=== PATIENT | male | born 1935 | race Caucasian/White ===

== ENCOUNTER → 2016-07-30 | Day surgery (SDC) | payer MEDICARE ==
[~2016-07-30] VITALS: Ht 188 cm; Wt 73.5 kg
[~2016-07-30] MED LIST: CALC1TAB87 PO; HYALURONIDASE/LIDOCAINE/EPINEPHRINE/BUPIVACAINE 4.5 ML SYR LEFT EYE ONE; HYALURONIDASE/LIDOCAINE/EPINEPHRINE/BUPIVACAINE 6 ML SYR LEFT EYE ONE; HYALURONIDASE/LIDOCAINE/EPINEPHRINE/BUPIVACAINE 6 ML SYR ONE; LIDOCAINE HCL 1% 30 ML VIAL ONE; MIDAZOLAM HCL 2 MG/2 ML VIAL ONE; OMEP20TA PO; PROPARACAINE HCL 0.5% OPHT SOLN 15 ML BTL LEFT EYE ONE; PROPOFOL 200 MG/20 ML AMP ONE; PROZ20CA11 PO; SODIUM CHLORID 0.9% 500 ML INJ 500 ML ONE; TOBRAMYCIN/DEXAMETHASONE OPTH OINT 3.5 GM TUBE ONE; UMEC1INH INH; VENTAER INH; VITA100018 PO
[2016-07-30 08:05] VITALS: BP 137/75; PULSE 59; RESP 16; TEMP 97.6; O2SAT 100
[2016-07-30] MEDS: CYCLOPENTOLATE HCL 1% OPHT SOLN 2 ML BTL LEFT EYE SCH ×4 (08:12→08:27)
[2016-07-30] MEDS: PHENYLEPHRINE HCL 10% OPTH SOLN 5 ML BTL LEFT EYE SCH ×4 (08:12→08:27)
[2016-07-30] MEDS: FLURBIPROFEN 0.03% OPHT SOLN 2.5 ML BTL LEFT EYE SCH ×4 (08:12→08:27)
[2016-07-30] MEDS: TROPICAMIDE 1% OPHT SOLN 15 ML BTL LEFT EYE SCH ×4 (08:12→08:27)
[2016-07-30 08:15] VITALS: PULSE 59
[2016-07-30 09:07] VITALS: PULSE 94
[2016-07-30 10:05] VITALS: TEMP 98
[2016-07-30 10:30] VITALS: BP 120/60; PULSE 60; RESP 14; O2SAT 96
--- NOTE | 2016-08-04 23:18 | MP ---
cc: ESA NATION M.D. [facility] #: [id number] DATE: 07/30/2016 PREOPERATIVE DIAGNOSIS: Visually significant cataract left eye. POSTOPERATIVE DIAGNOSIS: Visually significant cataract left eye. OPERATION: Phacoemulsification with posterior chamber lens implantation, left eye. SURGEON: Esa Nation MD ANESTHESIA: Retrobulbar with MAC. COMPLICATIONS: None. PROCEDURE: After informed consent was obtained, the patient was brought into the operative suite and placed on appropriate monitors by the Anesthesia Service. The patient had received a prior retrobulbar injection of local anesthetic by the Anesthesia Service in the holding area. The patient's operative eye was then prepped and draped in the usual sterile fashion. A wire lid speculum was placed. A paracentesis incision was made in the peripheral cornea with a 1 mm liliane keratome. The anterior chamber was filled with viscoelastic. The anterior chamber was then entered through a stepped, clear corneal incision using a sharp 3 mm liliane keratome. A circular tear capsulorrhexis was then made with a bent needle cystitome. Following hydrodissection of the lens nucleus with balanced saline, phacoemulsification of the nucleus was performed using a modified chopping technique. The remaining cortex was removed with irrigation/aspiration. The prior two procedures were both performed using the handpieces of the [employer] phaco unit. The capsular bag was then filled with viscoelastic. The intraocular lens was then injected into the capsular bag and positioned. The type of intraocular lens and its power can be found elsewhere in this chart. The remaining viscoelastic was then removed from the anterior chamber with the IA handpiece. The anterior chamber was reformed with balanced saline. The wound was then closed securely with stromal hydration. It was found to be watertight to an intraocular pressure of at least 30 mmHg by palpation. A small amount of balanced salt solution was then removed through the paracentesis site and the intraocular pressure at the end of the case was approximately 20 by palpation. All drapes were then removed. TobraDex ointment was then placed in the eye, which was closed beneath a semi-pressure patch dressing. The patient tolerated this procedure well and left the operating room awake and alert. The patient is to follow-up in my office in the morning. MD DEANGELO Tsai/SSB /10:04 AM /11:16 PM
== END | disposition home or self-care (01) ==
LOC: CSDC 07:09
PROVIDERS: ATTEND Optometrist Occupational Vision
DX: H25.812 Combined forms of age-related cataract, left eye (principal); Z95.0 Presence of cardiac pacemaker
CPT/HCPCS: 00142; 66984; J2250; J7040; V2632

== ENCOUNTER → 2016-09-23 | Day surgery (SDC) | payer MEDICARE ==
[~2016-09-23] MED LIST changes: -HYALURONIDASE/LIDOCAINE/EPINEPHRINE/BUPIVACAINE 4.5 ML SYR LEFT EYE ONE; -HYALURONIDASE/LIDOCAINE/EPINEPHRINE/BUPIVACAINE 6 ML SYR LEFT EYE ONE; -HYALURONIDASE/LIDOCAINE/EPINEPHRINE/BUPIVACAINE 6 ML SYR ONE; +LACTATED RINGER'S 1000 ML INJ 1,000 ML ONE; -LIDOCAINE HCL 1% 30 ML VIAL ONE; -MIDAZOLAM HCL 2 MG/2 ML VIAL ONE; -PROPARACAINE HCL 0.5% OPHT SOLN 15 ML BTL LEFT EYE ONE; +PROPOFOL 100 MG/10 ML INJ IV ONE; -PROPOFOL 200 MG/20 ML AMP ONE; -SODIUM CHLORID 0.9% 500 ML INJ 500 ML ONE; -TOBRAMYCIN/DEXAMETHASONE OPTH OINT 3.5 GM TUBE ONE; -UMEC1INH INH
--- NOTE | 2016-09-23 12:26 | GIPROC ---
[facility] [address], [address] EGD PROCEDURE REPORT EXAM DATE: 09/23/2016 PATIENT NAME: Ap Arevalo MR #: [id number] BIRTHDATE: 1935 ATTENDING: David Heath MD ORDER #: [id number] SYSTEMS SOFTWARE DESIGNER: Remedios Garcia STATUS: outpatient INDICATIONS: The patient is a 80 yr old male here for an EGD due to dysphagia and cirrhosis PROCEDURE PERFORMED: EGD w/ band ligation of varices MEDICATIONS: None and Per Anesthesia. TOPICAL ANESTHETIC: CONSENT: The patient understands the risks and benefits of the procedure and understands that these risks include, but are not limited to: sedation, allergic reaction, infection, perforation and/or bleeding. Alternative means of evaluation and treatment include, among others: physical exam, x-rays, and/or surgical intervention. The patient elects to proceed with this endoscopic procedure. medical equipment was checked for proper function. Hand hygiene and appropriate measures for infection prevention was taken. After the risks, benefits and alternatives of the procedure were thoroughly explained, Informed consent was verified, confirmed and timeout was successfully executed by the treatment team. The patient was anesthetized with topical anesthesia and the EC-3490Li ([id number]) and EC-2990i ([id number]) endoscope was introduced through the mouth and advanced to the second portion of the duodenum. Retroflexed views revealed no abnormalities The gastroscope was then slowly withdrawn and removed. 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 The varices were not bleeding. There was evidence of prior scarring. A moderately severe Schatzki ring was found at the gastroesophageal junction. The endoscopy was otherwise normal. STOMACH: A medium sized hiatal hernia was noted. Moderate portal hypertensive gastropathy was found. ADVERSE EVENTS: There were no complications. IMPRESSIONS: 1. Schatzki ring was found at the gastroesophageal junction 2. Normal endoscopy otherwise 3. Medium sized hiatal hernia 4. Portal hypertensive gastropathy was found 5. Retroflexed views revealed no abnormalities RECOMMENDATIONS: 1. Follow-up: GI clinic 2 week(s) 2. Recommend chew food well EGD in 2 months to follow up on varices and possibly do dilation for the Schatski ring 3. Anti-reflux regimen 4. Continue PPI PATIENT CONDITION: stable DISPOSITION: Home REPEAT EXAM: David Heath MD eSigned: David Heath MD 09/23/2016 12:25 PM cc: Raquel Daniel [facility] [place] PATIENT NAME: Ap Arevalo MR#: [id number]
== END | disposition home or self-care (01) ==
LOC: ESDC 09:23
PROVIDERS: ATTEND Internal Medicine Gastroenterology
DX: R13.10 Dysphagia, unspecified (principal); K74.60 Unspecified cirrhosis of liver; I85.00 Esophageal varices without bleeding; K22.2 Esophageal obstruction; K44.9 Diaphragmatic hernia without obstruction or gangrene; K76.6 Portal hypertension; K31.89 Other diseases of stomach and duodenum
CPT/HCPCS: 00740; 43244; J3010; J7120

== ENCOUNTER 2016-10-05 09:14 | Emergency (ER) | payer MEDICARE ==
[~2016-10-05] VITALS: Ht 188 cm; Wt 76.0 kg
[~2016-10-05 09:14] MED LIST changes: -LACTATED RINGER'S 1000 ML INJ 1,000 ML ONE; -PROPOFOL 100 MG/10 ML INJ IV ONE; -PROZ20CA11 PO
[2016-10-05 09:15] VITALS: BP 134/70; PULSE 82; RESP 20; TEMP 97; O2SAT 95
--- NOTE | 2016-10-05 10:26 | PD ---
HPI Chief Complaint: ENT Complaint Time Seen by Provider: 10:00 Travel History International Travel<30 days: No Contact w/Intl Traveler<30days: No Traveled to known affect area: No History of Present Illness HPI This patient complains of difficulty swallowing solid foods. He is able to drink down liquids without any difficulty. He doesn't feel like anything stuck now. But when he eats solid he has to make effort to force it down into the stomach. He says this all started when he had endoscopy September 23, which was 12 days ago. He says he woke up from the endoscopy with the problem and was told it would go away but hasn't so he is now in the emergency room for that. Comes of moderate severity. No alleviating factors. Duration 12 days. PFSH Past Medical History Asthma: No Autoimmune Disease: No Blood Disorders: Yes (THROMBOCYTOPENIA) Anxiety: Yes Depression: No Heart Rhythm Problems: No Cancer: Yes (skin ca on hand DC) Cardiovascular Problems: Yes (pacemaker) High Cholesterol: Yes Chest Pain: Yes Congestive Heart Failure: No COPD: Yes Coronary Artery Disease: No Diabetes: No Diminished Hearing: No Endocrine: No Gastrointestinal Disorders: Yes (GALLSTONES) GERD: Yes Genitourinary: No Hepatitis: No Hiatal Hernia: Yes Hypertension: No Immune Disorder: No Kidney Stones: Yes Medical other: Yes (pt states he does not know why blood count low, ) Musculoskeletal: No Neurologic: No Psychiatric: No Reproductive: No Respiratory: Yes (emphysema) Immunizations Current: Yes Sleep Apnea: No Thyroid Disease: No Tetanus Vaccination: < 5 Years Past Surgical History Abdominal Surgery: Yes (RT INGUINAL HERNIA) AICD: No Cardiac Surgery: Yes (pacemaker ) Joint Replacement: No Pacemaker: Yes (inserted with this visit) Other Surgery: Yes Social History Alcohol Use: No Tobacco Use: No (HX 1 PPD - QUIT 60 YEARS AGO) Substance Use: No Allergies-Medications (Allergen,Severity, Reaction): Coded Allergies: No Known Allergies (Unverified , 10/05/16) Reported Meds & Prescriptions Reported Meds & Active Scripts Active Reported Calcium 600 with Vitamin D (Calcium Carbonate-Cholecalciferol) 600-400 mg-Unit Tab 1 Tab PO DAILY Ventolin Hfa 18 GM Inh (Albuterol Sulfate) 90 Mcg/Act Aer 2 Puff INH Q4-6H PRN Vitamin D3 (Cholecalciferol) 1,000 Unit Tab 1,000 Units PO DAILY Omeprazole 20 Mg Tab 20 Mg PO DAILY Review of Systems General / Constitutional: No: Fever Eyes: No: Visual changes HENT: No: Headaches Cardiovascular: No: Chest Pain or Discomfort Respiratory: No: Shortness of Breath Gastrointestinal: Positive: Dysphagia, No: Abdominal Pain Genitourinary: No: Dysuria Musculoskeletal: No: Pain Skin: No Rash Neurologic: No: Weakness Psychiatric: No: Depression Endocrine: No: Polydipsia Hematologic/Lymphatic: No: Easy Bruising Physical Exam Narrative GENERAL: Well-nourished, well-developed patient in no apparent distress. SKIN: Focused skin assessment reveals no rash and nodules. Skin is Warm and dry. Has scabbed lesion on the forehead HEAD: Atraumatic. Normocephalic. EYES: Pupils equal and round. No scleral icterus. No injection or drainage. ENT: No nasal bleeding or discharge. Mucous membranes pink and moist. NECK: Trachea midline. No JVD. CARDIOVASCULAR: Regular rate and rhythm. No murmur appreciated. RESPIRATORY: No accessory muscle use. Clear to auscultation. Breath sounds equal bilaterally. GASTROINTESTINAL: Abdomen soft, non-tender, nondistended. Hepatic and splenic margins not palpable. MUSCULOSKELETAL: No obvious deformities. No clubbing. No cyanosis. No edema. NEUROLOGICAL: Awake and alert. No obvious cranial nerve deficits. Motor grossly within normal limits. Normal speech. PSYCHIATRIC: Appropriate mood and affect; insight and judgment normal. Data Data Last Documented VS Vital Signs Date Time Temp Pulse Resp B/P Pulse Ox O2 Delivery O2 Flow Rate FiO2 10/05/16 13:00 97.8 74 16 130/72 99 Room Air Orders Iv Access Insert/Monitor (10/05/16 10:26) Complete Blood Count With Diff (10/05/16 10:26) Basic Metabolic Panel (Bmp) (10/05/16 10:26) Barium Swallow (10/05/16 ) Labs Laboratory Tests Test 10/05/16 10:59 White Blood Count 3.8 TH/MM3 Red Blood Count 4.40 MIL/MM3 Hemoglobin 13.9 GM/DL Hematocrit 38.7 % Mean Corpuscular Volume 88.0 FL Mean Corpuscular Hemoglobin 31.7 PG Mean Corpuscular Hemoglobin 36.0 % Concent Red Cell Distribution Width 15.4 % Platelet Count 48 TH/MM3 Mean Platelet Volume 7.1 FL Neutrophils (%) (Auto) 73.2 % Lymphocytes (%) (Auto) 14.4 % Monocytes (%) (Auto) 10.7 % Eosinophils (%) (Auto) 1.3 % Basophils (%) (Auto) 0.4 % Neutrophils # (Auto) 2.8 TH/MM3 Lymphocytes # (Auto) 0.5 TH/MM3 Monocytes # (Auto) 0.4 TH/MM3 Eosinophils # (Auto) 0.0 TH/MM3 Basophils # (Auto) 0.0 TH/MM3 CBC Comment AUTO DIFF Differential Comment AUTO DIFF CONFIRMED Platelet Estimate LOW Platelet Morphology Comment NORMAL Ovalocytes 1+ Acanthocytes 1+ Sodium Level 136 MEQ/L Potassium Level 4.0 MEQ/L Chloride Level 100 MEQ/L Carbon Dioxide Level 27.9 MEQ/L Anion Gap 8 MEQ/L Blood Urea Nitrogen 11 MG/DL Creatinine 1.04 MG/DL Estimat Glomerular Filtration 68 ML/MIN Rate Random Glucose 109 MG/DL Calcium Level 8.6 MG/DL MDM Medical Decision Making Medical Screen Exam Complete: Yes Emergency Medical Condition: Yes Medical Record Reviewed: Yes Differential Diagnosis Esophageal stricture, esophageal varices, sphincter dysfunction Narrative Course I have reviewed the patient's electronic medical record. Reviewed his endoscopy report from 12 days ago. IV placed CBC shows low white count and low platelets which are chronic per patient, hemoglobin normal Metabolic profile shows some renal insufficiency also chronic I reviewed the case in detail with GI covering physician Dr. Gallardo. He recommended we do a barium swallow here in the emergency department to rule out major obstructive problem. Barium swallow reveals a moderate narrowing with a ring of scar tissue is noted on endoscopy. Nothing new that we didn't know Patient wants to go home now. He is stable for outpatient GI follow-up Dr. Gallardo reported that one of the GI physicians would see him tomorrow and schedule a dilation procedure Diagnosis Primary Impression: Esophageal stricture Additional Impression: Dysphagia Qualified Code: R13.14 - Esophageal dysphagia Additional Instructions: Full liquid diet Call GI physician tomorrow for follow-up time Med/Other Pt SpecificInfo: Other Disposition: 01 DISCHARGE HOME Condition: Stable Pj Velazquez MD Oct 05, 2016 10:25
[2016-10-05 11:00] VITALS: BP 128/76; PULSE 77; RESP 16; TEMP 97.8; O2SAT 99
[2016-10-05 11:18] LABS: AUTOMATED NEUTROPHIL # 2.8 TH/MM3 (1.8-7.7); BASOPHIL % 0.4 % (0.0-2.0); EOSINOPHIL % 1.3 % (0.0-4.0); HEMATOCRIT 38.7 % (39.0-51.0); LYMPH % 14.4 % (9.0-44.0); LYMPHOCYTE # 0.5 TH/MM3 (1.0-4.8); MEAN CORPUSCULAR HEMOGLOBIN 31.7 PG (27.0-34.0); MONO % 10.7 % (0.0-8.0); NEUT % 73.2 % (16.0-70.0); PLATELET COUNT 48 TH/MM3 (150-450); RED CELL DISTRIBUTION WIDTH 15.4 % (11.6-17.2); WHITE BLOOD COUNT 3.8 TH/MM3 (4.0-11.0)
[2016-10-05 11:21] LABS: HEMO FLAGS AUTO DIFF
[2016-10-05 11:35] LABS: BICARBONATE 27.9 MEQ/L (21.0-32.0)
[2016-10-05 11:59] LABS: ACANTHOCYTES 1+ (NORMAL); OVALOCYTES 1+ (NORMAL)
[2016-10-05 12:00] LABS: PLATELET ESTIMATE SMEAR LOW (NORMAL); PLATELET MORPHOLOGY NORMAL (NORMAL); SCAN/DIFF AUTO DIFF CONFIRMED
[2016-10-05 13:00] VITALS: BP 130/72; PULSE 74; RESP 16; TEMP 97.8; O2SAT 99
--- NOTE | 2016-10-05 13:16 | RADRPT ---
EXAM DATE/TIME: 10/05/2016 12:50 [place] COMPARISON: CHEST SINGLE AP, November 18, 2015, 17:23. INDICATIONS : Dysphagia FLUORO TIME: 0.9 minutes IMAGE COUNT: 10 CONTRAST: 1. E-Z HD Barium Sulfate (98% w/w) MEDICAL HISTORY : None. SURGICAL HISTORY : Endoscopy ENCOUNTER: Initial ACUITY: 1 week PAIN SCORE: 2/10 LOCATION: Esophagus FINDINGS: The patient initiates swallowing normally. There is brisk transit of barium from the oropharynx down to the stomach. The examination does demonstrate an area of circumferential stricturing in the distal esophagus. Most consistent with a Schatzki B. ring. There is a small hiatal hernia. Note was made of multiple tertia ry contractions throughout the distal esophagus. The fundus of the stomach was normal in appearance. CONCLUSION: 1. There is a Schatzki B. ring causing at least moderate narrowing of the distal esophagus. There wer e multiple tertiary contractions evident within the esophagus above this during the examination. Alfonso Yu MD on October 05, 2016 at 13:03 Board Certified Radiologist. This report was verified electronically.
[2016-10-05 14:48] VITALS: BP 130/77; TEMP 97.8
[2016-10-07] MEDS ORDERED: PROZ20CA11 PO (09:35)
== END 2016-10-05 14:48 | disposition home or self-care (01) ==
LOC: NEPA 09:14
DX: K22.2 Esophageal obstruction (principal); R13.10 Dysphagia, unspecified
CPT/HCPCS: 74230; 80048; 85025; 99284

== ENCOUNTER → 2016-10-07 | Outpatient (CLI) | payer MEDICARE ==
[~2016-10-07] VITALS: Ht 188 cm; Wt 73.8 kg
[~2016-10-07] MED LIST changes: +CHLORHEXIDINE GLUCONATE 2 % 1 PACK (2 CLOTHS) TOPICAL PRN; +INSULIN HUMAN REGULAR 1,000 UNITS/10 ML VIAL SQ PRN; +LACTATED RINGER'S 1000 ML IV PRN; +METOPROLOL TARTRATE 25 MG TAB PO PRN; +POVIDONE IODINE 5% (ANTISEPSIS KIT) 4 APPLICATIONS EACH NARE PRN; +PROPOFOL 200 MG/20 ML AMP IV ONE; +PROZ20CA11 PO; +SODIUM CHLORID 0.9% 500 ML IV PRN
[2016-10-07 09:00] VITALS: BP 127/69; PULSE 61; RESP 16; TEMP 98.7; O2SAT 97
[2016-10-07 11:13] VITALS: TEMP 97.4
--- NOTE | 2016-10-07 11:28 | GIPROC ---
[facility] [address]. [facility], [address] EGD PROCEDURE REPORT EXAM DATE: 10/07/2016 PATIENT NAME: Ap Arevalo MR #: [id number] BIRTHDATE: 1935 ATTENDING: Evie Fritz MD ORDER #: [id number] BEAM WORKER: Steven Bose and Justus Torres STATUS: outpatient INDICATIONS: The patient is a 81 yr old male here for an EGD due to dyspepsia and dysphagia PROCEDURE PERFORMED: EGD w/ biopsy EGD w/ dilation of esophagus via guidewire MEDICATIONS: None and Per Anesthesia. TOPICAL ANESTHETIC: CONSENT: The patient understands the risks and benefits of the procedure and understands that these risks include, but are not limited to: sedation, allergic reaction, infection, perforation and/or bleeding. Alternative means of evaluation and treatment include, among others: physical exam, x-rays, and/or surgical intervention. The patient elects to proceed with this endoscopic procedure. medical equipment was checked for proper function. Hand hygiene and appropriate measures for infection prevention was taken. After the risks, benefits and alternatives of the procedure were thoroughly explained, Informed consent was verified, confirmed and timeout was successfully executed by the treatment team. The patient was anesthetized with topical anesthesia and the Pentax EG-[id number] and [id number] endoscope was introduced through the mouth and advanced to the second portion of the duodenum. Retroflexed views revealed a hiatal hernia The gastroscope was then slowly withdrawn and removed. ESOPHAGUS: There was a short fibrotic and peptic stricture in the distal esophagus. The stricture was traversable with resistance. A biopsy was performed using cold forceps. Sample sent for histology. The stricture was dilated using a 17mm (51Fr) savary dilator over guidewire. Following this dilation, there was a medium sized mucosal rent. STOMACH: There was erythematous moderate gastritis in the gastric antrum. ADVERSE EVENTS: There were no complications. IMPRESSIONS: 1. There was a short stricture in the distal esophagus; biopsy was performed; The stricture was dilated using a 17mm (51Fr) savary dilator over guidewire.; Following this dilation, there was a medium sized mucosal rent 2. Retroflexed views revealed a hiatal hernia RECOMMENDATIONS: 1. Await biopsy results. Biopsy results will not be ready for 7-10 days. If you don't hear from us in two weeks, call our office for biopsy results. 2. Anti-reflux regimen 3. Continue PPI 4. Avoid NSAIDS PATIENT CONDITION: stable DISPOSITION: Home REPEAT EXAM: Return 1 year Dilatation Evie Fritz MD eSigned: Evie Fritz MD 10/07/2016 11:28 AM cc: Raquel Lobato M.D. PATIENT NAME: Ap Arevalo MR#: [id number]
[2016-10-07 11:35] VITALS: BP 120/67; PULSE 60; RESP 16; O2SAT 98
== END ==
LOC: HEND 08:24
PROVIDERS: ATTEND Internal Medicine Gastroenterology
DX: K22.2 Esophageal obstruction (principal); K44.9 Diaphragmatic hernia without obstruction or gangrene; K29.70 Gastritis, unspecified, without bleeding
CPT/HCPCS: 00740; 43239; 43248; 88305; C1769